=== PATIENT | male | born 1965 | race Caucasian/White ===

== ENCOUNTER 2018-09-01 12:12 | Inpatient (IN) | payer BC ==
[~2018-09-01] VITALS: Ht 180.3 cm; Wt 137.4 kg
[2018-09-01 12:20] VITALS: Ht 180.3 cm; Wt 137.4 kg
[2018-09-01 13:14] LABS: BASOPHIL % 0.3 % (0-2); PLATELET COUNT 191 x10^3mcL (130-400); RED CELL DISTRIBUTION WIDTH 14.3 % (11.5-14.5)
[2018-09-01 13:27] LABS: CALCIUM 10.9 mg/dL (8.5-10.1); CARBON DIOXIDE 22.4 mmol/L (21-32); CHLORIDE SERUM 101 mmol/L (98-107); GFR1 > 60 mL/min; GLUCOSE SERUM 170 mg/dL (74-106); POTASSIUM SERUM 3.5 mmol/L (3.5-5.1); SODIUM SERUM 137 mmol/L (136-145)
[2018-09-01 13:31] LABS: ALBUMIN 3.8 g/dL (3.4-5.0); ALKALINE PHOSPHATASE 100 U/L (46-116); ALT/SGPT 74 U/L (16-63); AST/SGOT 26 U/L (15-37); BILIRUBIN TOTAL 0.4 mg/dL (0.20-1.00); LIPASE 128 IU/L (73-393); TOTAL PROTEIN, SERUM 7.9 g/dL (6.4-8.2)
[2018-09-01] MEDS ORDERED: HCTZ/TRIAMTEREN1 CA1 PO (14:55)
[2018-09-01] MEDS ORDERED: CARDURA4 MG PO (14:56)
[2018-09-01] MEDS ORDERED: NOR10 PO (14:56)
[2018-09-01] MEDS ORDERED: FUROSEMIDE40 MG PO (14:56)
[2018-09-01] MEDS ORDERED: COZAAR100 MG PO (14:56)
[2018-09-01] MEDS ORDERED: AZELASTINE137 MCG/Ac (14:57)
[2018-09-01 15:14] LABS: UA SPECIFIC GRAVITY >=1.030 (1.005-1.035); microscopic required? YES; urine erythrocyte 1+ (NEGATIVE)
[2018-09-01 15:42] LABS: CHOLESTEROL/HDL RATIO 3.5; MAGNESIUM 1.9 mg/dL (1.8-2.4); PHOSPHOROUS 1.9 mg/dL (2.5-4.9)
[2018-09-01 15:49] LABS: AMPHETAMINE QUAL UR NONE DETECTED (See below)
[2018-09-01 16:47] VITALS: BP 168/106
[2018-09-01 21:57] VITALS: BP 145/88
[2018-09-02 05:13] VITALS: BP 143/83
[2018-09-02 07:19] LABS: BASOPHIL % 0.2 % (0-2); PLATELET COUNT 211 x10^3mcL (130-400); RED CELL DISTRIBUTION WIDTH 14.3 % (11.5-14.5)
[2018-09-02 07:30] LABS: ALBUMIN 3.5 g/dL (3.4-5.0); ALKALINE PHOSPHATASE 97 U/L (46-116); ALT/SGPT 75 U/L (16-63); AST/SGOT 25 U/L (15-37); CALCIUM 10.8 mg/dL (8.5-10.1); CARBON DIOXIDE 27.9 mmol/L (21-32); CHLORIDE SERUM 105 mmol/L (98-107); CREATININE SERUM 1.2 mg/dL (0.7-1.3); GFR1 > 60 mL/min; GLUCOSE SERUM 137 mg/dL (74-106); MAGNESIUM 1.9 mg/dL (1.8-2.4); PHOSPHOROUS 2.8 mg/dL (2.5-4.9); POTASSIUM SERUM 4.3 mmol/L (3.5-5.1); SODIUM SERUM 140 mmol/L (136-145); TOTAL PROTEIN, SERUM 7.8 g/dL (6.4-8.2)
[2018-09-02 10:03] VITALS: BP 132/78
[2018-09-02 20:30] VITALS: BP 111/58
[2018-09-03 06:08] VITALS: BP 134/75
[2018-09-03 06:38] LABS: BASOPHIL % 0.2 % (0-2); PLATELET COUNT 170 x10^3mcL (130-400)
[2018-09-03 06:54] LABS: CALCIUM 11.1 mg/dL (8.5-10.1); CARBON DIOXIDE 25.9 mmol/L (21-32); CHLORIDE SERUM 104 mmol/L (98-107); CREATININE SERUM 1.2 mg/dL (0.7-1.3); GFR1 > 60 mL/min; GLUCOSE SERUM 122 mg/dL (74-106); MAGNESIUM 1.8 mg/dL (1.8-2.4); PHOSPHOROUS 2.9 mg/dL (2.5-4.9); RED CELL DISTRIBUTION WIDTH 14.6 % (11.5-14.5); SODIUM SERUM 139 mmol/L (136-145)
[2018-09-03 09:19] LABS: BILIRUBIN DIRECT 0.27 mg/dL (0.0-0.2); BILIRUBIN TOTAL 0.67 mg/dL (0.20-1.00); TOTAL PROTEIN, SERUM 6.6 g/dL (6.4-8.2)
[2018-09-03 09:21] LABS: ALBUMIN 3.2 g/dL (3.4-5.0)
[2018-09-03 09:56] VITALS: BP 134/76
[2018-09-03 12:55] VITALS: BP 137/77
[2018-09-03 17:19] VITALS: BP 119/67
[2018-09-03 21:12] VITALS: BP 126/62
[2018-09-04 06:12] VITALS: BP 134/73
[2018-09-04 06:25] LABS: BASOPHIL % 0.3 % (0-2); PLATELET COUNT 162 x10^3mcL (130-400)
[2018-09-04 06:33] LABS: RED CELL DISTRIBUTION WIDTH 14.9 % (11.5-14.5)
[2018-09-04 06:48] LABS: CALCIUM 10.2 mg/dL (8.5-10.1); CARBON DIOXIDE 28.8 mmol/L (21-32); CHLORIDE SERUM 104 mmol/L (98-107); CREATININE SERUM 1.1 mg/dL (0.7-1.3); GFR1 > 60 mL/min; GLUCOSE SERUM 102 mg/dL (74-106); MAGNESIUM 1.7 mg/dL (1.8-2.4); POTASSIUM SERUM 4.1 mmol/L (3.5-5.1); SODIUM SERUM 141 mmol/L (136-145)
[2018-09-04 09:00] VITALS: BP 131/62
[2018-09-04 10:13] LABS: BILIRUBIN DIRECT 0.25 mg/dL (0.0-0.2); BILIRUBIN TOTAL 0.8 mg/dL (0.20-1.00)
[2018-09-04 17:25] VITALS: BP 119/63
[2018-09-05 05:35] VITALS: BP 112/57
[2018-09-05 07:37] LABS: BASOPHIL % 0.3 % (0-2); PLATELET COUNT 164 x10^3mcL (130-400); RED CELL DISTRIBUTION WIDTH 14.6 % (11.5-14.5)
[2018-09-05 07:42] LABS: CALCIUM 10.7 mg/dL (8.5-10.1); CARBON DIOXIDE 27.2 mmol/L (21-32); CHLORIDE SERUM 104 mmol/L (98-107); CREATININE SERUM 0.8 mg/dL (0.7-1.3); GFR1 > 60 mL/min; GLUCOSE SERUM 94 mg/dL (74-106); MAGNESIUM 1.8 mg/dL (1.8-2.4); POTASSIUM SERUM 3.5 mmol/L (3.5-5.1); SODIUM SERUM 139 mmol/L (136-145)
[2018-09-05 09:37] VITALS: BP 106/69
[2018-09-05 14:36] VITALS: BP 106/69
== END 2018-09-05 16:00 | disposition home or self-care (01) | DRG 411 ==
LOC: ED 12:12 → MU 15:05 → DU 09-03 04:37 → MU 09-03 20:39
PROVIDERS: Emergency Medicine; Internal Medicine; Internal Medicine Gastroenterology; Surgery; ADMIT Family Medicine
PROC: 0FJB4ZZ Inspection of Hepatobiliary Duct, Percutaneous Endoscopic Approach (ICD-10-PCS; 2018-09-02)
PROC: 0FT44ZZ Resection of Gallbladder, Percutaneous Endoscopic Approach (ICD-10-PCS; principal; 2018-09-02 13:30)
DX: K80.70 Calculus of gallbladder and bile duct without cholecystitis without obstruction (principal); N17.0 Acute kidney failure with tubular necrosis; Z68.41 Body mass index [BMI] 40.0-44.9, adult; K56.7 Ileus, unspecified; E66.01 Morbid (severe) obesity due to excess calories; F17.210 Nicotine dependence, cigarettes, uncomplicated; E83.39 Other disorders of phosphorus metabolism; G89.29 Other chronic pain; M54.9 Dorsalgia, unspecified; K59.00 Constipation, unspecified; K21.9 Gastro-esophageal reflux disease without esophagitis; I77.819 Aortic ectasia, unspecified site; I10 Essential (primary) hypertension; Z71.3 Dietary counseling and surveillance; Z88.6 Allergy status to analgesic agent; Z83.3 Family history of diabetes mellitus
CPT/HCPCS: 83880; J0694; J1170; J1885; J2175; J2250; J2270; J2405; J2543; J3010; J3490; J7030; Q0092; Q9967